=== PATIENT | male | born 2000 | race Caucasian/White ===

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

== ENCOUNTER 2022-08-27 13:04 | Emergency (ER) | payer OTHER ==
[~2022-08-27] VITALS: Ht 162 cm; Wt 53.0 kg
[~2022-08-27 13:04] MED LIST: AMOX-358 PO
[2022-08-27 13:51] LABS: BILIRUBIN,URINE NEGATIVE (NEGATIVE); CLARITY,URINE CLEAR; COLOR,URINE YELLOW; GLUCOSE, URINE (UA) NEGATIVE (NEGATIVE); KETONES,URINE 2+ (NEGATIVE); LEUKOCYTE ESTERASE ,URINE NEGATIVE (NEGATIVE); NITRITE,URINE NEGATIVE (NEGATIVE); PROTEIN,URINE 1+ (NEGATIVE)
[2022-08-27 14:01] LABS: BACTERIA,URINE FEW /HPF; RBC,URINE 0-2 /HPF
[2022-08-27] MEDS ORDERED: NS IV 1000 ML 1,000 ML IV SCH (14:30)
--- NOTE | 2022-08-27 14:30 | ED GU-Male ---
General Chief Complaint: - Reproductive Stated Complaint: TESTICULAR PAIN Nursing Triage Note: SENT FROM THE CLINIC FOR TESTICULAR PAIN. Source: patient Exam Limitations: language barrier (LIS IRENE APRN) History of Present Illness Date Seen by Provider: Aug 27, 2022 Time Seen by Provider: 13:28 Initial Comments 22-year-old male presents with left testicular pain that started at 7 AM this morning. States the pain is constant. Reports he has right-sided testicular pain for over a year, that is intermittent. States the pain in his right te sticle lasts about 5 minutes at a time. States he has never had pain in the left testicle before. Complaining of pain radiating up into left lower abdomen. Denies flank pain. Denies fevers, diarrhea, dysuria, penile discharge. Last bowel movement was this morning. He does endorse some nausea. States he is not currently sexually active, but he has had sexual intercourse approximately 2 months ago. Denies any past medical history, does not take any medications. (LIS IRENE APRN) Allergies and Home Medications Allergies Coded Allergies: No Known Drug Allergies (Unverified , 12/24/20) Patient Home Medication List Home Medication List Reviewed: Yes (LIS IRENE APRN) Amoxicillin/Potassium Clav (Augmentin 875-125 Tablet) 1 Each Tablet, 1 EACH PO BID Prescribed by: SHANTI ALVAREZ on 12/24/20 0423 Review of Systems Review of Systems Constitutional: see HPI (LIS IRENE APRN) Past Wfvkewk-[place] Hx Patient Social History Tobacco Use?: No Substance use?: No Alcohol Use?: No (LIS IRENE APRN) Physical Exam Vital Signs Vital Signs - First Documented 08/27/22 13:14 Temp 36.9 Pulse 54 Resp 16 B/P (MAP) 121/75 (90) Pulse Ox 100 O2 Delivery Room Air (PRESTON ELKINS) Vital Signs Capillary Refill : Less Than 3 Seconds (LIS IRENE APRN) Height, Weight, BMI Height: '" Weight: lbs. oz. kg; 20.00 BMI Method: General Appearance: WD/WN, no apparent distress Neck: supple, normal inspection Cardiovascular: regular rate, rhythm, no edema, no gallop, no JVD, no murmur Respiratory: lungs clear, normal breath sounds, no respiratory distress, no accessory muscle use Gastrointestinal: normal bowel sounds, soft, tenderness (Left suprapubic area) Male: no hernia; No erythema, No inguinal tenderness; testicular tenderness, other (Mild left testicular swelling) Back: normal inspection, no CVA tenderness Extremities: normal range of motion, normal inspection Neurologic/Psychiatric: alert, normal mood/affect Skin: normal color, warm/dry (LIS IRENE APRN) Progress/Results/Core Measures Suspected Sepsis SIRS Temperature: Pulse: 54 Respiratory Rate: 16 Blood Pressure 121 /75 Mean: 90 (LIS IRENE APRN) Results/Orders Lab Results Laboratory Tests Test 08/27/22 13:39 Range/Units Urine Color YELLOW Urine Clarity CLEAR Urine pH 6.0 5-9 Urine Specific Colver >=1.030 1.016-1.022 Urine Protein 1+ H NEGATIVE Urine Glucose (UA) NEGATIVE NEGATIVE Urine Ketones 2+ H NEGATIVE Urine Nitrite NEGATIVE NEGATIVE Urine Bilirubin NEGATIVE NEGATIVE Urine Urobilinogen 1.0 < = 1.0 MG/DL Urine Leukocyte Esterase NEGATIVE NEGATIVE Urine RBC (Auto) NEGATIVE NEGATIVE Urine RBC 0-2 /HPF Urine WBC 2-5 /HPF Urine Squamous Epithelial Cells 2-5 /HPF Urine Crystals NONE /LPF Urine Bacteria FEW H /HPF Urine Casts NONE /LPF Urine Mucus LARGE H /LPF Urine Culture Indicated YES (PRESTON ELKINS) My Orders Orders - PRESTON ELKINS Ed Iv/Invasive Line Start (08/27/22 14:28) Ns Iv 1000 Ml (Sodium Chloride 0.9%) (08/27/22 14:30) Ibuprofen Tablet (Motrin Tablet) (08/27/22 16:06) (PRESTON ELKINS) Vital Signs/I&O 08/27/22 08/27/22 13:14 16:20 Temp 36.9 36.9 Pulse 54 57 Resp 16 16 B/P (MAP) 121/75 (90) 122/76 Pulse Ox 100 100 O2 Delivery Room Air Room Air (PRESTON ELKINS) Vital Signs/I&O Capillary Refill : Less Than 3 Seconds (LIS IRENE APRN) Blood Pressure Mean: 90 Progress Note : Time: 13:50 Progress Note Patient seen and evaluated, resting comfortably, no acute distress. Based on exam and symptoms, concerned for STD, epididymitis, testicular torsion. Work-up initiated including UA with culture, gonorrhea and chlamydia testing, testicular ultrasound. (LIS IRENE APRN) Progress Note : Progress Note 1415 assumed care of patient, awaiting US. Patient denies any requests. 1500 US results reviewed with patient. Denies any new symptoms. Will arrange urology follow up. 1530 spoke to [facility]. Will fax results and they will contact patient to schedule appt. 1600 discharge instructions and return precautions reviewed with the patient. All questions answered. (PRESTON ELKINS) Diagnostic Imaging Diagonstic Imaging: Ultrasound Plain Films/CT/US/NM/MRI: other (testicular) Comments [facility] [place], [place] NAME: CLAUDIAMEDINA,MAGAN R [facility] REC#: [id number] PT STATUS: REG ER : 2001 PHYSICIAN: LIS IRENE APRN ADMIT DATE: 08/27/22/ER Draft Date of Exam:08/27/22 US SCROTUM (Testicle) [id number] PROCEDURE: US Scrotum. TECHNIQUE: Multiple Real-time grayscale images were obtained over the scrotum in various projections bilaterally. INDICATION: Left testicular pain. COMPARISON: None available. FINDINGS: The right testicle measures 4.4 x 2.0 x 2.9 cm. The left testicle measures 4.0 x 3.0 x 2.0 cm. Both testicles have normal echogenicity. There is blood flow present in both testicles by color Doppler and spectral Doppler imaging. There is a cystic structure at the superior aspect of the left testicle adjacent to the epididymal head and this projects medially between the two testicles. Overall, this cystic structure measures 6.0 x 2.6 x 2.1 cm and is simple in nature without internal septations or nodules. Otherwise, there is no abnormality of the epididymis on either side. No hydrocele or varicocele. IMPRESSION: 1. No testicular torsion or mass. 2. Cystic structure superior to the left kidney may represent a large spermatocele arising from the epididymal head. Dictated on workstation # [id number] Dict: 08/27/22 1510 Trans: 08/27/22 1515 [id number] Interpreted by: KENDAL MINOR MD Electronically signed by: Reviewed: Reviewed by Me (called dictation to have radiologist edit dictation. ) (PRESTON ELKINS) Departure Impression Primary Impression: Spermatocele of epididymis, single Additional Impression: Left testicular pain Disposition: HOME, SELF-CARE Condition: Stable Departure-Patient Inst. Decision time for Depature: 15:15 (PRESTON ELKINS) Referrals: [facility] (PCP/Family) Primary Care Physician Add. Discharge Instructions: Take ibuprofen 600 mg every 8 hours. Increase water intake. We will call you with the STI testing and arrange treatment if needed. Return to the Emergency Dept for new, urgent healthcare needs. Urology clinic will call you for appointment. Or camilla can call them [phone] [facility]3] Urology - [place] [email or web address] [address], [address], [place] [address] All discharge instructions reviewed with patient and/or family. Voiced understanding. LIS IRENE APRN Aug 27, 2022 14:30 PRESTON ELKINS Aug 27, 2022 15:34
--- NOTE | 2022-08-27 15:15 | Diagnostic Imaging Report ---
PROCEDURE: US Scrotum. TECHNIQUE: Multiple Real-time grayscale images were obtained over the scrotum in various projections bilaterally. INDICATION: Left testicular pain. COMPARISON: None available. FINDINGS: The right testicle measures 4.4 x 2.0 x 2.9 cm. The left testicle measures 4.0 x 3.0 x 2.0 cm. Both testicles have normal echogenicity. There is blood flow present in both testicles by color Doppler and spectral Doppler imaging. There is a cystic structure at the superior aspect of the left testicle adjacent to the epididymal head and this projects medially between the two testicles. Overall, this cystic structure measures 6.0 x 2.6 x 2.1 cm and is simple in nature without internal septations or nodules. Otherwise, there is no abnormality of the epididymis on either side. No hydrocele or varicocele. IMPRESSION: 1. No testicular torsion or mass. 2. Cystic structure superior to the left testicle may represent a large spermatocele arising from the epididymal head. Dictated by: Dictated on workstation # [id number]
[2022-08-27] MEDS ORDERED: IBUPROFEN 800 MG (MOTRIN) TAB PO STA (16:06)
[2022-08-27 16:20] VITALS: BP 122/76
== END 2022-08-27 16:22 | disposition home or self-care (01) ==
LOC: EDUNIT# 13:04 → ER 13:09
DX: N43.41 Spermatocele of epididymis, single (principal); Z28.310 Unvaccinated for COVID-19
CPT/HCPCS: 36415; 76870; 81000; 87088; 87491; 87591